=== PATIENT | male | born 1970 | race Caucasian/White ===

== ENCOUNTER 2018-04-06 03:59 | Emergency (ER) | payer MEDICAID, OTHER ==
[2018-04-06 04:14] VITALS: BP 132/88; PULSE 93; RESP 18; TEMP 97.7; O2SAT 96
[2018-04-06] MEDS ORDERED: Acetaminophen-Codeine 300/30 mg Tab PO STA (04:30)
[2018-04-06] MEDS ORDERED: Acetaminophen/Codeine elixir 120-12mg/5ml ONE (04:38)
[2018-04-06] MEDS ORDERED: Acetaminophen-Codeine 300/30 mg Tab PO ONE (04:40)
--- NOTE | 2018-04-06 04:45 | C.PDOC ---
History Of Present Illness 48 year old male presents to the ED c/o penile pain. Patient reports he was seen by his PMD and diagnosed and treated for genital herpes. Patient reports having penile lesions since last week now radiating to the base of his penis. Patient reports taking Ibuprofen with no relief. Patient denies abdominal pain, dysuia, hematuria, penile discharge, inguinal pain. Time Seen by Provider: 04/06/18 04:17 Chief Complaint (Nursing): Groin Pain History Per: Patient History/Exam Limitations: no limitations Onset/Duration Of Symptoms: Days Current Symptoms Are (Timing): Still Present Quality Of Discomfort: "Pain" Alleviating Factors: None Recent travel outside of the [place]: No Additional History Per: Patient Past Medical History Reviewed: Historical Data, Nursing Documentation, Vital Signs Vital Signs: Last Vital Signs Temp 97.7 F 04/06/18 04:10 Pulse 93 H 04/06/18 04:10 Resp 18 04/06/18 04:10 BP 132/88 04/06/18 04:10 Pulse Ox 96 04/06/18 04:48 - Medical History PMH: Diabetes, HTN Denies: Chronic Kidney Disease Surgical History: No Surg Hx Family History: States: Unknown Family Hx - Social History Hx Tobacco Use: No Hx Alcohol Use: No Hx Substance Use: No - Immunization History Hx Tetanus Toxoid Vaccination: No Hx Influenza Vaccination: Yes Hx Pneumococcal Vaccination: No Review Of Systems Constitutional: Negative for: Fever, Chills Cardiovascular: Negative for: Chest Pain, Palpitations Respiratory: Negative for: Cough, Shortness of Breath Gastrointestinal: Negative for: Nausea, Vomiting, Abdominal Pain Genitourinary: Positive for: Penile Pain. Negative for: Dysuria, Hematuria, Penile Discharge Skin: Negative for: Rash Neurological: Negative for: Weakness, Numbness Physical Exam - Physical Exam Appears: Non-toxic, No Acute Distress Skin: Normal Color, Warm, Dry Head: Atraumatic, Normacephalic Eye(s): bilateral: Normal Inspection Oral Mucosa: Moist Neck: Normal ROM, Supple Chest: Symmetrical Cardiovascular: Rhythm Regular Respiratory: Normal Breath Sounds, No Rales, No Rhonchi, No Wheezing Gastrointestinal/Abdominal: Soft, No Tenderness, No Guarding, No Rebound Male Genital: No Testicular Tenderness, No Testicular Swelling, No Inguinal Swelling, No Scrotal Swelling, Other (open lesions with erythema to the foreskin and near the glans penis) Extremity: Normal ROM, No Tenderness, No Swelling Neurological/Psych: Oriented x3, Normal Speech Gait: Steady ED Course And Treatment O2 Sat by Pulse Oximetry: 96 (ON RA) Pulse Ox Interpretation: Normal Progress Note: Plan: - Tylenol/codeine PO. On reassessment, patient is resting comfortably, and is in no acute distress. Patient was instructed to follow up with physician/clinic in 1-2 days for further evaluation. Disposition Counseled Patient/Family Regarding: Diagnosis, Need For Followup, Rx Given - Disposition Referrals: Rex Ponce MD [Medical Doctor] - Disposition: HOME/ ROUTINE Disposition Time: 05:07 Condition: STABLE Additional Instructions: Take medications as directed Continue cream Follwo up with PMD Return to ER if worse Prescriptions: Acetaminophen/Codeine [Tylenol/Codeine 300 MG/30 MG] 1 - 2 ea PO Q6 PRN #10 tab PRN Reason: Pain, Moderate (4-7) Instructions: Genital Herpes (DC) Forms: [employer] (Bel[place]ian) - Clinical Impression Clinical Impression: Genital herpes in men, Penile pain - PA / EVENT ORGANIZER / Resident Statement MD/DO has reviewed & agrees with the documentation as recorded. - Scribe Statement The provider has reviewed the documentation as recorded by the Scribe Robin Calvert All medical record entries made by the Mikalaibe were at my direction and personally dictated by me. I have reviewed the chart and agree that the record accurately reflects my personal performance of the history, physical exam, medical decision making, and the department course for this patient. I have also personally directed, reviewed, and agree with the discharge instructions and disposition.
== END 2018-04-06 05:21 | disposition home or self-care (01) ==
LOC: C.ER 03:59
DX: A60.00 Herpesviral infection of urogenital system, unspecified (principal); N48.89 Other specified disorders of penis; E11.9 Type 2 diabetes mellitus without complications; I10 Essential (primary) hypertension